=== PATIENT | female | born 1955 | race Caucasian/White ===

== ENCOUNTER 2016-04-18 14:47 | Day surgery (SDC) | payer BC ==
[2016-04-10 08:14] VITALS: BMI 21.2
[~2016-04-18 14:47] MED LIST: DEXAMETHASONE SOD PHOSPHATE 10 MG/ML 1 ML VIAL IV ONE; FAMOTIDINE 20 MG/2 ML VIAL IV PRN; HEPARIN SODIUM,PORCINE 5,000 UNIT/ML 1 ML VIAL SQ ONE; LIDOCAINE 1% 20 ML VIAL (10MG/ML) FOR IV START INTRADERMA PRN; MIDAZOLAM 2 MG/2 ML VIAL IV PRN; ONDANSETRON 4 MG/2 ML VIAL IVP ONE; SCOPOLAMINE 1.5MG/72HR PATCH TRANSDERM ONE; ceFAZolin 2 GM in SODIUM CHLORIDE 0.9% 100 ML IVPB ONE
[2016-04-18] MEDS: LACTATED RINGERS 1,000 ML IV SCH ×2 (15:22→15:23)
[2016-04-18] MEDS ORDERED: LIDOCAINE 1% 20 ML VIAL (10MG/ML) FOR IV START INTRADERMA ONE (15:23)
--- NOTE | 2016-04-18 17:47 | P.GSHP ---
History of Present Illness H&P Date: 04/18/16 Chief Complaint: Incarcerated incisional hernia This is a 60-year-old female has developed an incarcerated incisional hernia at a epigastric trocar site. She does today for laparoscopic robotic system repair of incisional hernia. - Constitutional Constitutional: Reports as per HPI Past Medical History Additional Past Medical History / Comment(s): HERNIA History of Any Multi-Drug Resistant Organisms: None Reported Past Surgical History: Appendectomy, Cholecystectomy, Hernia Repair, Tubal Ligation Additional Past Surgical History / Comment(s): BUNIONS-BILAT FEET Past Anesthesia/Blood Transfusion Reactions: No Reported Reaction Past Psychological History: No Psychological Hx Reported Smoking Status: Never smoker Past Alcohol Use History: None Reported Past Drug Use History: None Reported - Past Family History Father Family Medical History: Cancer Additional Family Medical History / Comment(s): COLON Medications and Allergies Home Medications Medication Instructions Recorded Confirmed Type No Known Home Medications [No 04/10/16 04/18/16 History Known Home Medications] Allergies Allergy/AdvReac Type Severity Reaction Status Date / Time No Known Allergies Allergy Verified 04/18/16 15:06 Surgical - Exam Vital Signs Temp Pulse Resp BP Pulse Ox 98.1 F 92 16 124/72 98 04/18/16 15:10 04/18/16 15:10 04/18/16 15:10 04/18/16 15:10 04/18/16 15:10 - General well developed, no distress - Eyes PERRL - ENT normal pinna - Neck no masses - Respiratory normal expansion - Cardiovascular Rhythm: regular - Abdomen Abdomen: soft, non tender Hernia: incisional (Cursory incisional hernia located in mid epigastric area approximately 3 cm in diameter) Assessment and Plan Plan: Incarcerated incisional hernia. We'll perform laparoscopic robotic system repair.
[2016-04-18] MEDS ORDERED: MIDAZOLAM 2 MG/2 ML VIAL ONE (17:50)
[2016-04-18] MEDS ORDERED: SODIUM CHLORIDE 0.9% 100 ML BAG ONE (17:50)
[2016-04-18] MEDS ORDERED: ceFAZolin 1,000 MG VIAL ONE (17:50)
[2016-04-18] MEDS ORDERED: NEOSTIGMINE 1 MG/ML 10 ML VIAL ONE (17:50)
[2016-04-18] MEDS ORDERED: KETOROLAC 30 MG/ML 1 ML VIAL ONE (17:50)
[2016-04-18] MEDS ORDERED: GLYCOPYRROLATE 0.2 MG/ML 2 ML VIAL ONE (17:50)
[2016-04-18] MEDS ORDERED: fentaNYL (PF) 50 MCG/ML 2 ML AMP ONE (17:50)
[2016-04-18] MEDS ORDERED: ROCURONIUM BROMIDE 10 MG/ML 10 ML VIAL IV ONE (17:50)
[2016-04-18] MEDS ORDERED: PROPOFOL 10 MG/ML 20 ML VIAL IV ONE (17:50)
[2016-04-18] MEDS ORDERED: BUPIVACAIN-EPI 0.25%-1:200,000 30 ML VIAL SQ ONE ×3 (18:15→18:55)
--- NOTE | 2016-04-18 18:59 | P.OP ---
Date of Procedure: 04/18/16 Preoperative Diagnosis: Incarcerated incisional hernia Postoperative Diagnosis: Incarcerated incisional hernia Procedure(s) Performed: Laparoscopic robotic-assisted repair of incarcerated incisional hernia Partial omentectomy Anesthesia: MARICHUY Surgeon: Andrei Johnson Estimated Blood Loss (ml): 5 Pathology: other (Omentum) Condition: stable Disposition: PACU Description of Procedure: The patient's placed on the operating table in the supine position. She received general anesthesia. Her abdomen was prepped and draped in sterile fashion. A 5 mm trochars placed in the left upper quadrant under direct visualization. In the lateral sides back. Cavity. Next a 8 mm trochars placed in the left lower quadrant and a 12 mm trocar was placed in the left lateral position. And then the original 5 mm trocar was exchanged for an 8 mm robotic trocar. The patient's placed in the left side up position and then the patient was docked to the robot. Using the hook cautery the incarcerated omentum was reduced from the hernia. The fascial defect was then seen. The fascial defect was then closed with oh the lock suture. Next a piece of ventral light ST mesh was placed and then the cavity and this was secured with a combination of 2 OV lock and was secured strap tacker. The patient was undocked from the robot. And the tacker was used to fix the mesh. This point the needles were withdrawn. The 12 mm trocar site was closed with 0 Ethibond suture. And then the skin was closed with 3-0 Monocryl suture. Dermabond was applied. Patient top procedure well and sent to recovery in stable condition.
[2016-04-18] MEDS: HYDROmorphone 1 MG/ML 1 ML SYRINGE IVP PRN ×4 (19:30→19:55)
[2016-04-18 19:32] VITALS: TEMP 99.6
[2016-04-18 20:03] VITALS: RESP 18
[2016-04-18] MEDS ORDERED: LACTATED RINGERS 1,000 ML IV ONE ×2 (20:30→20:32)
[2016-04-18] MEDS ORDERED: HYDROcodone/APAP 7.5-325MG 1 EACH TAB PO ONE (21:25)
[2016-04-18 21:42] VITALS: BP 112/71; PULSE 79
[2016-04-18] MEDS ORDERED: ONDANSETRON 4 MG/2 ML VIAL IVP ONE (21:59)
== END 2016-04-18 22:28 | disposition home or self-care (01) ==
LOC: OR 14:47
PROVIDERS: ATTEND Surgery
DX: K43.0 Incisional hernia with obstruction, without gangrene (principal)
CPT/HCPCS: 49655; 88305; J2250; J1644; J1100; J2710; J2405; J0690; J3010; J1885; J1170; J2704

== ENCOUNTER → 2016-07-05 | Outpatient (CLI) | payer BC ==
--- NOTE | 2016-07-05 13:43 | CT ---
EXAMINATION TYPE: CT abdomen pelvis w con DATE OF EXAM: 07/05/2016 1:24 PM COMPARISON: 06/05/2010 HISTORY: 61-year-old female with periumbilical/incisional pain status post double hernia repair with mesh implantation 3 months ago. TECHNIQUE: Contiguous axial scanning of the abdomen and pelvis following administration of 100 ml Omn ipaque 300 IV contrast. Delayed images through the kidneys and coronal/sagittal reconstructions perf ormed. CT DLP: 852 mGycm Automated exposure control for dose reduction was used. FINDINGS: The heart is normal size without pericardial effusion. Some stringy atelectasis at the posterior left lung base without pleural effusion. No focal liver lesion or biliary ductal dilatation. Portal venous system is patent Cholecystectomy clips. Adrenal glands, right kidney, spleen, and pancreas appear within normal limits. Enlarging left renal cyst now measuring 7.1 cm versus 4.7 cm on 06/05/2010. This now has prominent mas s effect with anterior displacement of the left kidney. No dilated small bowel, free fluid, or free air. Oral contrast has progressed to the rectum. No peric olonic inflammatory change. No mesenteric or retroperitoneal lymphadenopathy. The bladder is nondistended. Pelvic phleboliths are again demonstrated. The bilateral gonadal veins a re large in caliber with prominent periuterine varices on the left in particular but also on the righ t side. No abnormal fluid collection in the pelvis. Small ovaries are noted. No pelvic lymphadenopath y seen. No recurrent abdominal wall hernia identified. No abnormal cutaneous or subcutaneous lesion seen. Bones: There is a right L5 hemisacralization and associated degenerative changes in the lower lumbar spine. No osseous destructive process. Grade 1 anterolisthesis at L4-L5. IMPRESSION: 1. MESH REPAIR IN THE PERIUMBILICAL REGION. NO ABDOMINAL WALL HERNIA OR SIGNIFICANT INFLAMMATION SEEN ALONG THE ANTERIOR ABDOMINAL WALL. 2. THE LARGE 7.1 CM LEFT RENAL CYST SHOWS INTERVAL ENLARGEMENT FROM 2010 NOW WITH MASS EFFECT IN ANTE RIOR DISPLACEMENT ON THE LEFT KIDNEY. CORRELATE TO IF THIS COULD BE SYMPTOMATIC. 3. CORRELATE FOR BILATERAL PELVIC CONGESTION SYNDROME, WORSE ON THE LEFT.
== END | disposition home or self-care (01) ==
LOC: RADCTMAIN 12:47
PROVIDERS: ATTEND Surgery
DX: N28.1 Cyst of kidney, acquired (principal); R10.84 Generalized abdominal pain
CPT/HCPCS: 74177; Q9967

== ENCOUNTER 2016-08-10 08:52 | Day surgery (SDC) | payer BC ==
[2016-08-10 09:33] VITALS: TEMP 98.1
[2016-08-10 09:39] LABS: Mean Platelet Volume 7.3
[2016-08-10 09:50] LABS: Prothrombin Time 10.6 sec (9.0-12.0)
[2016-08-10 11:51] VITALS: BP 121/72; PULSE 77; RESP 16
--- NOTE | 2016-08-10 14:37 | CT ---
EXAMINATION TYPE: CT guided aspiration DATE OF EXAM: 08/10/2016 10:42 AM COMPARISON: NONE HISTORY: Lt renal cyst drainage CT DLP: 502mGycm PROCEDURE: The risks, applications, benefits and alternatives, were discussed with the patient and questions wer e answered. Informed consent was obtained. The patient was placed prone on the fluoroscopic table, p repped and draped in the usual sterile fashion. A 22-gauge system was utilized with direct passage of the needle into the requested renal cyst under CT guidance. An aspiration was performed. No residual cyst postaspiration.. The patient was stable throughout procedure and remained stable upon discharge from radiology. All e lements of maximal barrier and sterile technique were utilized. IMPRESSION: 1. Successful renal cyst aspiration under CT guidance.
== END 2016-08-10 11:45 | disposition home or self-care (01) ==
LOC: RADPROMAIN 08:52
PROVIDERS: ATTEND Urology
DX: N28.1 Cyst of kidney, acquired (principal)
CPT/HCPCS: 36415; 77012; 85049; 85610

== ENCOUNTER → 2017-03-28 | Outpatient (CLI) | payer BC ==
--- NOTE | 2017-04-01 09:50 | MM ---
Reason for exam: screening (asymptomatic). Last mammogram was performed 1 year and 9 months ago. History: Patient is postmenopausal and had first child at age 33. Physical Findings: A clinical breast exam by your physician is recommended on an annual basis and results should be correlated with mammographic findings. MG Screening Mammo w CAD Bilateral CC and MLO view(s) were taken. Prior study comparison: June 20, 2015, bilateral MG screening mammo w CAD. February 24, 2014, bilateral MG screening mammo w CAD. The breast tissue is heterogeneously dense. This may lower the sensitivity of mammography. No significant changes when compared with prior studies. ASSESSMENT: Benign, BI-RAD 2 RECOMMENDATION: Routine screening mammogram of both breasts in 1 year.
== END | disposition home or self-care (01) ==
LOC: RADMAMWWP 16:07
PROVIDERS: ATTEND Surgery
DX: Z12.31 Encounter for screening mammogram for malignant neoplasm of breast (principal)

== ENCOUNTER → 2017-04-26 | Outpatient (CLI) | payer BC ==
--- NOTE | 2017-04-26 08:36 | US ---
EXAMINATION TYPE: US venous doppler duplex LE DATE OF EXAM: 04/26/2017 7:56 AM COMPARISON: NONE CLINICAL HISTORY: R22.42SWELLING LLL,R22.41 SWELLING RLL. History of TIA, cramping bilateral lower le gs SIDE PERFORMED: Bilateral TECHNIQUE: The lower extremity deep venous system is examined utilizing real time linear array sonog mary with graded compression, doppler sonography and color-flow sonography. VESSELS IMAGED: External Iliac Vein (EIV) Common Femoral Vein Deep Femoral Vein Greater Saphenous Vein * Femoral Vein Popliteal Vein Small Saphenous Vein * Proximal Calf Veins (* superficial vessels) Grayscale, color doppler, spectral doppler imaging performed of the deep veins of the lower extremiti es. There is normal flow, compressibility, vascular waveforms. Right Leg: No evidence of DVT Left Leg: No evidence of DVT IMPRESSION: No sonographic evidence of deep venous thrombosis within either lower extremity.
== END ==
LOC: RADUSWWP 07:15
PROVIDERS: ATTEND Internal Medicine Hematology & Oncology
DX: R22.42 Localized swelling, mass and lump, left lower limb (principal); R22.41 Localized swelling, mass and lump, right lower limb
CPT/HCPCS: 93970

== ENCOUNTER → 2017-04-26 | Outpatient (CLI) | payer BC ==
--- NOTE | 2017-04-26 08:38 | US ---
EXAMINATION TYPE: US abdomen limited DATE OF EXAM: 04/26/2017 COMPARISON: NONE CLINICAL HISTORY: Z86.19 History of Hep C. Cholecystectomy, history of Hepatitis C EXAM MEASUREMENTS: Liver Length: 14.9 cm Gallbladder Wall: Surgically absent CBD: 0.2 cm Right Kidney: 9.9 x 3.7 x 4.6 cm Pancreas: visualized portions appear wnl Liver: Slightly coarsened hepatic echotexture with slightly diminished visualization of the portal tr iads. Although this finding slightly diminishes evaluation for hepatic masses and there is no focal s onographic mass on today's examination. Gallbladder: Surgically absent Evidence for sonographic Peña's sign: no CBD: wnl Right Kidney: no evidence of hydronephrosis or mass IMPRESSION: Mildly coarsened hepatic echotexture compatible with the patient's known history of underlying hepato cellular disease. No focal hepatic mass seen on today's examination.
== END | disposition home or self-care (01) ==
LOC: RADUSWWP 07:04
PROVIDERS: ATTEND Family Medicine
DX: Z09 Encounter for follow-up examination after completed treatment for conditions other than malignant neoplasm (principal); Z86.19 Personal history of other infectious and parasitic diseases
CPT/HCPCS: 76705

== ENCOUNTER → 2018-05-23 | Outpatient (CLI) | payer BC ==
--- NOTE | 2018-05-23 15:04 | US ---
EXAMINATION TYPE: US transvaginal DATE OF EXAM: 05/23/2018 COMPARISON: CT 2017 CLINICAL HISTORY: N93.8 Dysfunctional Uterine Bleeding. Bleeding x 4 days, 2, para 2, history of tubal ligation TECHNIQUE: Transvaginal exam only per ordering physician. Date of LMP: 10 years ago EXAM MEASUREMENTS: Uterus: 6.8 x 3.0 x 4.5 cm Endometrial Stripe: 0.1 cm Right Ovary: 2.7 x 1.9 x 1.6 cm Left Ovary: 2.1 x 1.2 x 1.1 cm 1. Uterus: anteverted 2. Endometrium: small amount of fluid seen within fundal portion of endo 3. Right Ovary: 2 simple appearing cystic areas with largest measuring 1.4 x 1.1 x 1.1cm 4. Left Ovary: Unremarkable 5. Bilateral Adnexa: wnl 6. Posterior cul-de-sac: wnl IMPRESSION: Trace amount of intramural endometrial fluid can be seen in endometrial atrophy with a th inned endometrial stripe measuring 1 mm, however direct visualization and sampling should remain a co nsideration in this patient with postmenopausal bleeding.
== END | disposition home or self-care (01) ==
LOC: RADUSWWP 14:12
PROVIDERS: ATTEND Family Medicine
DX: N93.8 Other specified abnormal uterine and vaginal bleeding (principal)
CPT/HCPCS: 76830

== ENCOUNTER → 2018-05-28 | Outpatient (CLI) | payer BC ==
--- NOTE | 2018-05-30 08:14 | MM ---
Reason for exam: screening (asymptomatic). Last mammogram was performed 1 year and 2 months ago. History: Patient is postmenopausal and had first child at age 33. Physical Findings: A clinical breast exam by your physician is recommended on an annual basis and results should be correlated with mammographic findings. MG Screening Mammo w CAD Bilateral CC and MLO view(s) were taken. Prior study comparison: March 28, 2017, bilateral MG screening mammo w CAD. June 20, 2015, bilateral MG screening mammo w CAD. The breast tissue is heterogeneously dense. This may lower the sensitivity of mammography. No significant changes when compared with prior studies. ASSESSMENT: Benign, BI-RAD 2 RECOMMENDATION: Routine screening mammogram of both breasts in 1 year.
== END ==
LOC: RADMAMWWP 14:29
PROVIDERS: ATTEND Family Medicine
DX: Z12.31 Encounter for screening mammogram for malignant neoplasm of breast (principal)
CPT/HCPCS: 77067

== ENCOUNTER → 2019-06-11 | Outpatient (CLI) | payer BC ==
--- NOTE | 2019-06-11 14:31 | MM ---
Reason for exam: screening (asymptomatic). Last mammogram was performed 1 year ago. History: Patient is postmenopausal and had first child at age 33. Physical Findings: A clinical breast exam by your physician is recommended on an annual basis and results should be correlated with mammographic findings. MG Screening Mammo w CAD Bilateral CC and MLO view(s) were taken. XCCL view(s) were taken of the right breast. Prior study comparison: May 28, 2018, bilateral MG screening mammo w CAD. March 28, 2017, bilateral MG screening mammo w CAD. The breast tissue is heterogeneously dense. This may lower the sensitivity of mammography. There is no discrete abnormality. No significant changes when compared with prior studies. ASSESSMENT: Negative, BI-RAD 1 RECOMMENDATION: Routine screening mammogram of both breasts in 1 year.
== END | disposition home or self-care (01) ==
LOC: RADMAMWWP 07:21
PROVIDERS: ATTEND Family Medicine
DX: Z12.39 Encounter for other screening for malignant neoplasm of breast (principal)
CPT/HCPCS: 77067

== ENCOUNTER → 2020-05-05 | Outpatient (CLI) | payer BC ==
[2020-05-05 10:55] LABS: Basophils % (A) 1 %; Eosinophils % (A) 1 %; HCT 43.6 % (34.0-46.0); HGB 14.3 gm/dL (11.4-16.0); Lymphocytes # (A) 1.1 k/uL (1.0-4.8); Lymphocytes % (A) 31 %; MCH 30.6 pg (25.0-35.0); MCHC 32.9 g/dL (31.0-37.0); Mean Platelet Volume 7.3; Monocytes # (A) 0.2 k/uL (0-1.0); Monocytes % (A) 5 %; Neutrophils # (A) 2.2 k/uL (1.3-7.7); Neutrophils % (A) 61 %; Platelet Count 152 k/uL (150-450); RBC 4.68 m/uL (3.80-5.40); WBC 3.7 k/uL (3.8-10.6)
[2020-05-05 11:11] LABS: ALT 68 U/L (4-34); AST 71 U/L (14-36); African American GFR (CKD) >90 (>60 ml/min/1.73 sqM); Albumin 4.8 g/dL (3.5-5.0); Alkaline Phosphatase 44 U/L (38-126); Anion Gap 9 mmol/L; Blood Urea Nitrogen 13 mg/dL (7-17); Calcium 9.9 mg/dL (8.4-10.2); Carbon Dioxide 26 mmol/L (22-30); Chloride 107 mmol/L (98-107); Cholesterol 127 mg/dL (<200); Creatine Kinase 973 U/L (30-135); Glucose 107 mg/dL (74-99); HDL Cholesterol 110 mg/dL (40-60); LDL Cholesterol,Calculated 12 mg/dL (0-99); Non-African American GFR(CKD) 86 (>60 ml/min/1.73 sqM); Potassium 4.1 mmol/L (3.5-5.1); Sodium 142 mmol/L (137-145); Total Bilirubin 0.6 mg/dL (0.2-1.3); Total Protein 7.9 g/dL (6.3-8.2); Triglycerides 26 mg/dL (<150)
[2020-05-05 17:21] LABS: Hemoglobin A1C 5.2 % (4.0-6.0)
--- NOTE | 2020-05-06 09:35 | ECHOS ---
STRESS ECHOCARDIOGRAM LUMASON: Vial INDICATIONS: Chest pain. MEDICATIONS: BASELINE HEART RATE: 113 BASELINE BLOOD PRESSURE: 151/80 MAXIMUM HEART RATE: 159 MAXIMUM BLOOD PRESSURE: 188/84 85% MPHR: 134 100% MPHR: 158 METS: 7.9 MAXIMUM STAGE REACHED: 2 TOTAL EXERCISE TIME: 6 minutes 32 seconds CLINICAL INFORMATION: Baseline rhythm is sinus mechanism, rate of 113, normal axis and intervals, nonspecific ST-T wave changes. Baseline blood pressure 151/80 mmHg. Patient exercised on Joe protocol for 6 minutes 32 seconds reaching peak rate 159 beats per minute which is equal to 100% maximum predicted heart rate. Peak blood pressure 188/84 mmHg. Test was terminated secondary to fatigue. There was no chest pain. Electrocardiograph monitoring revealed no evidence of diagnostic ischemic ST deviation. Baseline echocardiogram revealed normal wall motion. At peak exercise, there was normal wall motion augmentation with no hypokinesis or dyskinesis. CONCLUSION: 1. Average exercise tolerance with rare PVCs and nondiagnostic electrocardiograph stress testing secondary to baseline EKG abnormality. 2. Normal stress echocardiogram with no evidence of stress-induced ischemia. MMODL / IJN: [id number] /
== END | disposition home or self-care (01) ==
LOC: RADNMMAIN 09:10
PROVIDERS: ATTEND Family Medicine
DX: I49.3 Ventricular premature depolarization (principal); R94.31 Abnormal electrocardiogram [ECG] [EKG]; E78.5 Hyperlipidemia, unspecified
CPT/HCPCS: 80053; 80061; 82550; 83036; 85025; 93351

== ENCOUNTER 2020-06-17 09:01 | Day surgery (SDC) | payer BC ==
[2020-06-13 16:00] VITALS: BMI 22.1
[~2020-06-17 09:01] MED LIST changes: -DEXAMETHASONE SOD PHOSPHATE 10 MG/ML 1 ML VIAL IV ONE; -FAMOTIDINE 20 MG/2 ML VIAL IV PRN; -HEPARIN SODIUM,PORCINE 5,000 UNIT/ML 1 ML VIAL SQ ONE; +LACTATED RINGERS 1,000 ML IV SCH; -LIDOCAINE 1% 20 ML VIAL (10MG/ML) FOR IV START INTRADERMA PRN; -MIDAZOLAM 2 MG/2 ML VIAL IV PRN; -ONDANSETRON 4 MG/2 ML VIAL IVP ONE; -SCOPOLAMINE 1.5MG/72HR PATCH TRANSDERM ONE; -ceFAZolin 2 GM in SODIUM CHLORIDE 0.9% 100 ML IVPB ONE
[2020-06-17 09:32] VITALS: RESP 16; TEMP 98.4
[2020-06-17] MEDS ORDERED: LIDOCAINE 1% (10MG/ML) FOR IV START INTRADERMA ONE (09:35)
[2020-06-17] MEDS ORDERED: PROPOFOL 10 MG/ML 20 ML VIAL IV ONE (10:47)
--- NOTE | 2020-06-17 10:50 | P.GSHP ---
History of Present Illness H&P Date: 06/17/20 Chief Complaint: Screening colonoscopy Is a 62-year-old female been safe for screening colonoscopy. Patient denies a significant GI complaints. Past Medical History Past Medical History: CVA/TIA, Hyperlipidemia, Hypertension, Renal Disease Additional Past Medical History / Comment(s): left renal cyst, TIA History of Any Multi-Drug Resistant Organisms: None Reported Past Surgical History: Appendectomy, Cholecystectomy, Hernia Repair, Orthopedic Surgery, Tubal Ligation Additional Past Surgical History / Comment(s): BUNIONS-BILAT FEET, neck surgery for infection, colonoscopy Past Anesthesia/Blood Transfusion Reactions: No Reported Reaction Smoking Status: Never smoker - Past Family History Father Family Medical History: Cancer Additional Family Medical History / Comment(s): COLON Mother Family Medical History: No Reported History Medications and Allergies Home Medications Medication Instructions Recorded Confirmed Type Aspirin 162 mg PO DAILY #30 chewable 03/21/17 06/13/20 Rx Ubidecarenone [Co Q-10] 300 mg PO DAILY #90 capsule 03/21/17 06/13/20 Rx Metoprolol Tartrate 25 mg PO HS 06/13/20 06/13/20 History Rosuvastatin [Crestor] 10 mg PO HS 06/13/20 06/13/20 History Allergies Allergy/AdvReac Type Severity Reaction Status Date / Time No Known Allergies Allergy Verified 06/17/20 09:23 Surgical - Exam Vital Signs Temp Pulse Resp BP Pulse Ox 98.4 F 95 16 134/74 97 06/17/20 09:31 06/17/20 09:31 06/17/20 09:31 06/17/20 09:31 06/17/20 09:31 - General well developed, well nourished, no distress - Eyes PERRL - ENT normal pinna - Neck no masses - Respiratory normal expansion - Cardiovascular Rhythm: regular - Abdomen Abdomen: soft, non tender Assessment and Plan Assessment: We'll perform screening colonoscopy.
--- NOTE | 2020-06-17 11:04 | P.OP ---
Date of Procedure: 06/17/20 Preoperative Diagnosis: Screening colonoscopy Postoperative Diagnosis: Normal colonoscopy Procedure(s) Performed: Colonoscopy Anesthesia: MAC Surgeon: Andrei Johnson Pathology: none sent Condition: stable Disposition: PACU Description of Procedure: The patient's placed on the endoscopy table in the lateral position. She received IV sedation. Digital rectal exam was performed which revealed no abnormalities. Flexible colonoscope was then placed patient anus passed throughout the entire colon. The ileocecal valve visualized. The cecum, ascending transverse colon appeared normal. The descending and sigmoid colon appeared normal. Scope was then brought back into the rectum, this was normal. Scope was withdrawn for patient.
[2020-06-17 11:40] VITALS: BP 126/76; PULSE 89
== END 2020-06-17 11:58 | disposition home or self-care (01) ==
LOC: ORWHC2ENDO 09:01
PROVIDERS: ATTEND Surgery
DX: Z12.11 Encounter for screening for malignant neoplasm of colon (principal); I10 Essential (primary) hypertension; E78.5 Hyperlipidemia, unspecified; N28.9 Disorder of kidney and ureter, unspecified; Z80.0 Family history of malignant neoplasm of digestive organs; Z86.73 Personal history of transient ischemic attack (TIA), and cerebral infarction without residual deficits; Q61.01 Congenital single renal cyst; Z90.49 Acquired absence of other specified parts of digestive tract; Z98.51 Tubal ligation status; Z98.890 Other specified postprocedural states; Z90.89 Acquired absence of other organs; Z79.82 Long term (current) use of aspirin; Z79.899 Other long term (current) drug therapy
CPT/HCPCS: G0105; J2704

== ENCOUNTER → 2020-12-05 | Outpatient (CLI) | payer BC ==
--- NOTE | 2020-12-05 08:07 | US ---
EXAMINATION TYPE: US abdomen complete DATE OF EXAM: 12/05/2020 COMPARISON: US 04/26/2017, CT 07/05/2016 CLINICAL HISTORY: Z86.19 History of Hep C. Patient states she had left renal cyst drained EXAM MEASUREMENTS: Liver Length: 13.6 cm Gallbladder Wall: Surgically absent CBD: 0.5 cm Spleen: 8.2 cm Right Kidney: 10.5 x 3.3 x 4.4 cm Left Kidney: 9.5 x 4.2 x 4.2 cm Pancreas: Tail obscured by overlying bowel gas, visualized portions wnl Liver: wnl Gallbladder: Surgically absent Evidence for sonographic Peña's sign: No CBD: wnl Spleen: wnl Right Kidney: No hydronephrosis or masses seen Left Kidney: No hydronephrosis. Cyst measuring 8.3 x 6.8 x 7.7 cm Upper IVC: wnl Abd Aorta: wnl The liver is homogenous. The intrahepatic portion of the IVC and proximal abdominal aorta are within normal limits. There is no evidence of cholelithiasis. Common bile duct is unremarkable. The visu alized portions of the pancreas are homogenous. The spleen is unremarkable. Kidneys are symmetric a nd free of hydronephrosis. IMPRESSION: large cyst left kidney. Otherwise unremarkable study.
--- NOTE | 2020-12-06 10:19 | MM ---
Reason for exam: screening (asymptomatic). Last mammogram was performed 1 year and 6 months ago. History: Patient is postmenopausal and had first child at age 33. Physical Findings: A clinical breast exam by your physician is recommended on an annual basis and results should be correlated with mammographic findings. MG Screening Mammo w CAD Bilateral CC and MLO view(s) were taken. Prior study comparison: June 11, 2019, bilateral MG screening mammo w CAD. May 28, 2018, bilateral MG screening mammo w CAD. The breast tissue is heterogeneously dense. This may lower the sensitivity of mammography. Stable benign calcifications in the right breast. There is no discrete abnormality. No significant changes when compared with prior studies. ASSESSMENT: Benign, BI-RAD 2 RECOMMENDATION: Routine screening mammogram of both breasts in 1 year.
== END | disposition home or self-care (01) ==
LOC: RADMAMWWP 07:12
PROVIDERS: ATTEND Family Medicine
DX: Z12.31 Encounter for screening mammogram for malignant neoplasm of breast (principal); N28.1 Cyst of kidney, acquired; Z86.19 Personal history of other infectious and parasitic diseases
CPT/HCPCS: 76700; 77067

== ENCOUNTER → 2022-03-06 | Outpatient (CLI) | payer BC ==
--- NOTE | 2022-03-07 07:40 | MM ---
Reason for Exam: Screening (asymptomatic). Last mammogram was performed 1 year(s) and 3 month(s) ago. Patient History: Menarche at age 18. First Full-Term at age 33. Late child-bearing (after 30). Postmenopausal. Patient has history of breast feeding. Risk Values: Lata 5 year model risk: 2.0%. NCI Lifetime model risk: 8.1%. Prior Study Comparison: 02/02/2009 Left Diagnostic Mammogram, [facility]. 03/08/2010 Bilateral Screening Mammogram, [facility]. 03/20/2011 Bilateral Screening Mammogram, [facility]. 02/24/2014 Bilateral Screening Mammogram, [facility]. 06/20/2015 Bilateral Screening Mammogram, [facility]. 03/28/2017 Bilateral Screening Mammogram, [facility]. 05/28/2018 Bilateral Screening Mammogram, [facility]. 06/11/2019 Bilateral Screening Mammogram, [facility]. 12/05/2020 Bilateral Screening Mammogram, [facility]. Tissue Density: The breast tissue is heterogeneously dense. This may lower the sensitivity of mammography. Findings: Analyzed By CAD. There is no suspicious group of microcalcifications or new suspicious mass in either breast. Overall Assessment: Negative, BI-RAD 1 Management: Screening Mammogram of both breasts in 1 year. A clinical breast exam by your physician is recommended on an annual basis and results should be correlated with mammographic findings. Electronically signed and approved by: Marcelino Merino M.D. Radiologis
== END | disposition home or self-care (01) ==
LOC: RADMAMWWP 08:21
PROVIDERS: ATTEND Family Medicine
DX: Z12.31 Encounter for screening mammogram for malignant neoplasm of breast (principal); Z78.0 Asymptomatic menopausal state
CPT/HCPCS: 77067

== ENCOUNTER 2022-04-23 15:50 | Observation (INO) | payer BC ==
[2022-04-23] MEDS ORDERED: NITROGLYCERIN OINT 1 INCH/GM PACKET TOPICAL STA (16:27)
[2022-04-23] MEDS ORDERED: ASPIRIN 81 MG PO STA (16:27)
--- NOTE | 2022-04-23 16:29 | ED ---
General Adult HPI - General Chief complaint: Chest Pain Stated complaint: Chest pain Time Seen by Provider: 04/23/22 16:00 Source: patient, RN notes reviewed, old records reviewed Mode of arrival: ambulatory Limitations: no limitations - History of Present Illness Initial comments: Is a 66-year-old female presents emergency Department complaining that she has left-sided chest pressure. Patient states it lasts typically for an hour to a minute subsides. Patient states she has had in the past occasionally but doesn't last long but now this chest pain is been intermittent for the last 2 days about every 2 hours. Patient states yesterday she was also very short of breath with it as well. Patient denies any diaphoretic episodes. Patient denies lightheadedness or dizziness. Patient denies any nausea. Patient denies any abdominal pain. Patient denies any nausea vomiting or diarrhea. Patient denies any swelling to her legs or calf tenderness. Patient states she's not a smoker and has never been diagnosed with diabetes, hypertension, or high cholesterol. Patient denies any family history of heart disease. - Related Data Previous Rx's Medication Instructions Recorded Aspirin 81 mg PO DAILY tab 04/24/22 Metoprolol Tartrate [Lopressor] 25 mg PO TID #90 tab 04/24/22 Pantoprazole [Protonix] 40 mg PO DAILY #30 tab 04/24/22 Allergies Allergy/AdvReac Type Severity Reaction Status Date / Time No Known Allergies Allergy Verified 04/23/22 20:16 Review of Systems ROS Statement: Those systems with pertinent positive or pertinent negative responses have been documented in the HPI. ROS Other: All systems not noted in ROS Statement are negative. Past Medical History Past Medical History: CVA/TIA, Hyperlipidemia, Hypertension, Renal Disease Additional Past Medical History / Comment(s): left renal cyst, TIA History of Any Multi-Drug Resistant Organisms: None Reported Past Surgical History: Appendectomy, Cholecystectomy, Hernia Repair, Orthopedic Surgery, Tubal Ligation Additional Past Surgical History / Comment(s): BUNIONS-BILAT FEET, neck surgery for infection, colonoscopy Past Anesthesia/Blood Transfusion Reactions: No Reported Reaction Past Psychological History: No Psychological Hx Reported Smoking Status: Never smoker - Past Family History Father Family Medical History: Cancer Additional Family Medical History / Comment(s): COLON Mother Family Medical History: No Reported History General Exam - General Exam Comments Initial Comments: GENERAL: Patient is well-developed and well-nourished. Patient is nontoxic and well- hydrated and is in mild distress. ENT: Neck is soft and supple. No significant lymphadenopathy is noted. Oropharynx is clear. Moist mucous membranes. Neck has full range of motion without eliciting any pain. EYES: The sclera were anicteric and conjunctiva were pink and moist. Extraocular movements were intact and pupils were equal round and reactive to light. Eyelids were unremarkable. PULMONARY: Unlabored respirations. Good breath sounds bilaterally. No audible rales rhonchi or wheezing was noted. CARDIOVASCULAR: There is a regular rate and rhythm without any murmurs gallops or rubs. ABDOMEN: Soft and nontender with normal bowel sounds. SKIN: Skin is clear with no lesions or rashes and otherwise unremarkable. NEUROLOGIC: Patient is alert and oriented x3. Cranial nerves II through XII are grossly intact. Motor and sensory are also intact. Normal speech, volume and content. Symmetrical smile. MUSCULOSKELETAL: Normal extremities with adequate strength and full range of motion. No lower extremity swelling or edema. No calf tenderness. LYMPHATICS: No significant lymphadenopathy is noted PSYCHIATRIC: Normal psychiatric evaluation. Limitations: no limitations Course Vital Signs 04/23/22 04/23/22 04/23/22 15:55 17:18 18:13 Temperature 97 F L Pulse Rate 123 H 94 106 H Respiratory 20 18 18 Rate Blood Pressure 171/102 136/85 123/83 O2 Sat by Pulse 98 96 96 Oximetry 04/24/22 04/24/22 04/24/22 00:00 04:00 07:19 Temperature Pulse Rate 77 81 Respiratory 16 16 Rate Blood Pressure 107/60 133/68 O2 Sat by Pulse 97 99 99 Oximetry 04/24/22 04/24/22 07:41 12:24 Temperature 97.7 F Pulse Rate 74 71 Respiratory 18 18 Rate Blood Pressure 130/72 119/82 O2 Sat by Pulse 99 96 Oximetry Medical Decision Making - Medical Decision Making EKG is interpreted by myself. EKG shows sinus tachycardia at 110 bpm WA interval 140 QRS is 85 Q-T intervals 340 QTC is 45 per patient's EKG shows no ST segment elevation however there is slight ST segment depression in leads V3 through V6 as well as in the inferior leads. - Lab Data Result diagrams: 04/23/22 16:33 04/23/22 16:33 Lab Results 04/23/22 04/23/22 04/23/22 Range/Units 16:33 16:33 16:33 WBC 3.6 L (3.8-10.6) k/uL RBC 4.52 (3.80-5.40) m/uL Hgb 14.6 (11.4-16.0) gm/dL Hct 41.6 (34.0-46.0) % MCV 91.9 (80.0-100.0) fL MCH 32.3 (25.0-35.0) pg MCHC 35.1 (31.0-37.0) g/dL RDW 12.9 (11.5-15.5) % Plt Count 133 L (150-450) k/uL MPV 7.6 Neutrophils % 60 % Lymphocytes % 30 % Monocytes % 7 % Eosinophils % 1 % Basophils % 0 % Neutrophils # 2.2 (1.3-7.7) k/uL Lymphocytes # 1.1 (1.0-4.8) k/uL Monocytes # 0.2 (0-1.0) k/uL Eosinophils # 0.0 (0-0.7) k/uL Basophils # 0.0 (0-0.2) k/uL PT 9.9 (9.0-12.0) sec INR 0.9 (<1.2) APTT 22.6 (22.0-30.0) sec Sodium 142 (137-145) mmol/L Potassium 3.7 (3.5-5.1) mmol/L Chloride 108 H (98-107) mmol/L Carbon Dioxide 24 (22-30) mmol/L Anion Gap 10 mmol/L BUN 15 (7-17) mg/dL Creatinine 0.75 (0.52-1.04) mg/dL Est GFR (CKD-EPI)AfAm >90 (>60 ml/min/1.73 sqM) Est GFR (CKD-EPI)NonAf 85 (>60 ml/min/1.73 sqM) Glucose 112 H (74-99) mg/dL Calcium 9.5 (8.4-10.2) mg/dL Magnesium 2.0 (1.6-2.3) mg/dL Total Bilirubin 0.5 (0.2-1.3) mg/dL AST 58 H (14-36) U/L ALT 70 H (4-34) U/L Alkaline Phosphatase 53 (38-126) U/L Troponin I (0.000-0.034) ng/mL Total Protein 7.8 (6.3-8.2) g/dL Albumin 4.8 (3.5-5.0) g/dL 04/23/22 Range/Units 16:33 WBC (3.8-10.6) k/uL RBC (3.80-5.40) m/uL Hgb (11.4-16.0) gm/dL Hct (34.0-46.0) % MCV (80.0-100.0) fL MCH (25.0-35.0) pg MCHC (31.0-37.0) g/dL RDW (11.5-15.5) % Plt Count (150-450) k/uL MPV Neutrophils % % Lymphocytes % % Monocytes % % Eosinophils % % Basophils % % Neutrophils # (1.3-7.7) k/uL Lymphocytes # (1.0-4.8) k/uL Monocytes # (0-1.0) k/uL Eosinophils # (0-0.7) k/uL Basophils # (0-0.2) k/uL PT (9.0-12.0) sec INR (<1.2) APTT (22.0-30.0) sec Sodium (137-145) mmol/L Potassium (3.5-5.1) mmol/L Chloride (98-107) mmol/L Carbon Dioxide (22-30) mmol/L Anion Gap mmol/L BUN (7-17) mg/dL Creatinine (0.52-1.04) mg/dL Est GFR (CKD-EPI)AfAm (>60 ml/min/1.73 sqM) Est GFR (CKD-EPI)NonAf (>60 ml/min/1.73 sqM) Glucose (74-99) mg/dL Calcium (8.4-10.2) mg/dL Magnesium (1.6-2.3) mg/dL Total Bilirubin (0.2-1.3) mg/dL AST (14-36) U/L ALT (4-34) U/L Alkaline Phosphatase (38-126) U/L Troponin I <0.012 (0.000-0.034) ng/mL Total Protein (6.3-8.2) g/dL Albumin (3.5-5.0) g/dL Disposition Clinical Impression: Chest pain Disposition: ADMITTED IP TO THIS [facility] Time of Disposition: 19:30
[2022-04-23] MEDS ORDERED: LORazepam 2 MG/ML INJ IV STA (16:30)
[2022-04-23 16:50] LABS: Basophils % (A) 0 %; Eosinophils % (A) 1 %; HCT 41.6 % (34.0-46.0); HGB 14.6 gm/dL (11.4-16.0); Lymphocytes # (A) 1.1 k/uL (1.0-4.8); Lymphocytes % (A) 30 %; MCH 32.3 pg (25.0-35.0); MCHC 35.1 g/dL (31.0-37.0); MCV 91.9 fL (80.0-100.0); Mean Platelet Volume 7.6; Monocytes # (A) 0.2 k/uL (0-1.0); Monocytes % (A) 7 %; Neutrophils # (A) 2.2 k/uL (1.3-7.7); Neutrophils % (A) 60 %; Platelet Count 133 k/uL (150-450); RBC 4.52 m/uL (3.80-5.40); RDW 12.9 % (11.5-15.5); WBC 3.6 k/uL (3.8-10.6)
--- NOTE | 2022-04-23 17:01 | XR ---
EXAMINATION TYPE: XR chest 2V DATE OF EXAM: 04/23/2022 COMPARISON: NONE HISTORY: Chest pain TECHNIQUE: 2 views FINDINGS: Heart and mediastinum are normal. Lungs are clear. Diaphragm is normal. Bony thorax is inta ct. IMPRESSION: Normal chest.
[2022-04-23 17:07] LABS: INR 0.9 (<1.2); Partial Thromboplastin Time 22.6 sec (22.0-30.0); Prothrombin Time 9.9 sec (9.0-12.0)
[2022-04-23 17:15] LABS: ALT 70 U/L (4-34); AST 58 U/L (14-36); African American GFR (CKD) >90 (>60 ml/min/1.73 sqM); Albumin 4.8 g/dL (3.5-5.0); Alkaline Phosphatase 53 U/L (38-126); Anion Gap 10 mmol/L; Blood Urea Nitrogen 15 mg/dL (7-17); Calcium 9.5 mg/dL (8.4-10.2); Carbon Dioxide 24 mmol/L (22-30); Chloride 108 mmol/L (98-107); Glucose 112 mg/dL (74-99); Non-African American GFR(CKD) 85 (>60 ml/min/1.73 sqM); Potassium 3.7 mmol/L (3.5-5.1); Sodium 142 mmol/L (137-145); Total Bilirubin 0.5 mg/dL (0.2-1.3); Total Protein 7.8 g/dL (6.3-8.2)
[2022-04-23] MEDS ORDERED: NITROGLYCERIN SL TABS 0.4 MG TAB SUBLINGUAL PRN (19:48)
[2022-04-24] MEDS: NITROGLYCERIN OINT 1 INCH/GM PACKET TOPICAL SCH ×2 (00:36→06:13)
--- NOTE | 2022-04-24 02:44 | P.HPIM ---
History of Present Illness H&P Date: 04/23/22 Chief Complaint: left sided chest pain 66 year old female with hypertension patient has history of TIA , patent foramen ovale she recently had COIVD on Mar 14 , since then she has persistent non productive cough. and runny nose . she also reports having early satiety , with mccarthy stomach and food regurgitation over the past couple months , but denies any weight loss, or vomiting, she is here today based on recommendations of her PCP , that she went for evaluation regarding left sided chest / shoulder pain that she experienced all of a sudden while home, not related to activity. pain has been recurrent over past 3 days. rated as 8/10 in severity felt like heaviness. no associated nausea, vomiting, profuse sweating, or palpitations. but she does experience heavy breathing. she also reports some left hand tingling , but no other weakness, or focal neuro deficits. EKG did show some ST depression. Trops negative X2 blood work also showed low platelets, of 133, denies any bleeding . and slightly elevated AST/ALT. she dneise any tobacco smoking, illicit drugs or heavy alcohol patient had LISA inthe past when she had an episode of TIA, and showed patent foramen ovale with right to left shunt. Review of Systems Pertinent positives as noted in HPI. All other systems were reviewed and are negative Past Medical History Past Medical History: CVA/TIA, Hyperlipidemia, Hypertension, Renal Disease Additional Past Medical History / Comment(s): left renal cyst, TIA History of Any Multi-Drug Resistant Organisms: None Reported Past Surgical History: Appendectomy, Cholecystectomy, Hernia Repair, Orthopedic Surgery, Tubal Ligation Additional Past Surgical History / Comment(s): BUNIONS-BILAT FEET, neck surgery for infection, colonoscopy Past Anesthesia/Blood Transfusion Reactions: No Reported Reaction Past Psychological History: No Psychological Hx Reported Smoking Status: Never smoker - Past Family History Father Family Medical History: Cancer Additional Family Medical History / Comment(s): COLON Mother Family Medical History: No Reported History Medications and Allergies Home Medications Medication Instructions Recorded Confirmed Type Metoprolol Succinate (ER) [Toprol 25 mg PO HS 04/23/22 04/23/22 History Xl] Allergies Allergy/AdvReac Type Severity Reaction Status Date / Time No Known Allergies Allergy Verified 04/23/22 20:16 Physical Exam Vitals: Vital Signs Temp Pulse Resp BP Pulse Ox 04/23/22 18:13 106 H 18 123/83 96 04/23/22 17:18 94 18 136/85 96 04/23/22 15:55 97 F L 123 H 20 171/102 98 Intake and Output 04/23/22 04/23/22 04/23/22 06:59 14:59 22:59 Other: Weight 56.699 kg Constitutional: No acute distress, conversant, pleasant Eyes: Anicteric sclerae, moist conjunctiva, Pupils equal round reactive to light ENMT: NC/AT Oropharynx clear, no erythema, or exudates Neck: Supple, no masses, or JVD No carotid bruits No thyromegaly Lungs: Clear to auscultation Clear to percussion Normal respiratory effort, no accessory muscle use Cardiovascular: Heart regular in rate and rhythm, No murmurs, gallops, or rubs No peripheral edema Abdominal: Soft Nontender, no guarding, rebound or rigidity Abdomen moving with respiration Normoactive bowel sounds No hepatomegaly, No splenomegaly No palpable mass No abdominal wall hernia noted Skin: Normal temperature, tone, texture, turgor No induration No subcutaneous nodules No rash, lesions No ulcers Extremities: No digital cyanosis No clubbing Pedal pulses intact and symmetrical Radial pulses intact and symmetrical No calf tenderness Psychiatric: Alert and oriented to person, place and time Appropriate affect fair judgement Neuro Muscles Strength 5/5 in all 4 extremities Sensation to light touch grossly present throughout Cranial nerves II-XII grossly intact Lymphatics: no palpable cervical or supraclavicular lymph nodes Results CBC & Chem 7: 04/23/22 16:33 04/23/22 16:33 Labs: Abnormal Lab Results - Last 24 Hours (Table) 04/23/22 04/23/22 Range/Units 16:33 16:33 WBC 3.6 L (3.8-10.6) k/uL Plt Count 133 L (150-450) k/uL Chloride 108 H (98-107) mmol/L Glucose 112 H (74-99) mg/dL AST 58 H (14-36) U/L ALT 70 H (4-34) U/L Assessment and Plan Assessment: case was discussed with ED doc, patient was sent in from PCP office with concerns regarding ACS , patient will be admitted under observation for cardiac workup with anticipated length of stay < 2 midnights left sided chest pain , recurrent cardiac tele monitor vital signs cardiology consult ASA EKG st depression trops negative X 2 d dimer pending CXR no acute pathology resume beta blockers check lipid panel nitro PRN for chest pain elevated ast/ALT history of hep C , s/p treatment continue to monitor thrombocytopenia no evidence of bleeding she reports its chronic in nature full code heparin sc tid for DVT PPX
[2022-04-24] MEDS ORDERED: SODIUM CHLORIDE 0.9% 1,000 ML IV SCH (02:45)
[2022-04-24 07:47] VITALS: RESP 18; TEMP 97.7
[2022-04-24] MEDS ORDERED: HEPARIN SODIUM,PORCINE/PF 5,000 UNIT/0.5 ML SYRINGE SQ SCH (08:00)
[2022-04-24] MEDS ORDERED: ASPIRIN 325 MG TAB PO SCH (09:00)
[2022-04-24] MEDS ORDERED: METOPROLOL TARTRATE 25 MG TAB PO SCH ×2 (09:15)
[2022-04-24 09:25] LABS: Chol/HDL Ratio 1.33 Ratio; LDL Cholesterol,Calculated 26.7 mg/dL (0.0-131.0); VLDL Calculation 7.28 mg/dL (5.00-40.00)
[2022-04-24] MEDS ORDERED: PANTOPRAZOLE 40 MG/10 ML VIAL IVP ONE (10:43)
[2022-04-24 13:27] VITALS: BP 119/82; PULSE 71
--- NOTE | 2022-04-24 14:30 | P.DS ---
Providers Date of admission: 04/23/22 19:48 Expected date of discharge: 04/24/22 Attending physician: Elizabeth Cai DO Consults: 04/23/22 19:48 Consult Physician Urgent Consulting Provider: [facility] Consult Reason/Comments: Chest pain Do you want consulting provider notified?: Yes Primary care physician: Matt Arellano [facility] Hospital Course: Discharge Diagnosis: Noncardiac chest pain Sinus tachycardia Acid reflux History of TIAs Hypertension, accelerated on arrival Dyslipidemia Hospital Course: Patient is a 66-year-old female with history of hypertension, TIA, patent foramen ovale, and recent cholecystitis infection in February 2022. She presented with complaints of chest pain, palpitations, and continued sinus symptoms. In the ER she underwent an extensive evaluation. On arrival she was tachycardic and hypertensive with a pulse of 123 and a blood pressure 171/102. Laboratory analysis showed mildly elevated AST and ALT. Initial troponin was negative. EKG was nonischemic. Chest x-ray was negative. She had a d-dimer which was negative. Arrangements were made for observation. She was seen by cardiology. The remainder of her troponins were negative. Cholesterol profile was within normal limits. Cardiology recommended changing her metoprolol XL to metoprolol 25 mg 3 times daily and continue outpatient follow-up. Due to her symptoms was felt she likely had acid reflux. She was also prescribed Protonix on discharge and asked to follow-up with her primary care physician. Follow-up: Dr. Ferris in 1 week, Dr. Arellano in 1-2 days, stop Toprol 25 mg XL once daily and began to metoprolol tartrate 25 mg 3 times daily, Protonix 40 mg daily Patient seen and examined at bedside. She continues to have some left-sided chest discomfort isn't resolved for some hours. She does complain of postnasal drip, chronic cough, feeling as though water is refluxing up into her abdomen, subxiphoid pain, and frequent cough. We discussed that she likely has a component of acid reflux. Vital signs reviewed and stable. General: nontoxic, no distress, appears at stated age Derm: warm, dry Head: atraumatic, normocephalic, symmetric Eyes: EOMI, no lid lag, anicteric sclera Mouth: no lip lesion, mucus membranes moist, + postnasal drip, + pharyngeal erythema Cardiovascular: S1S2 reg, Lungs: CTA bilateral, no rhonchi, no rales , no accessory muscle use Abdominal: soft, tender to palpation subxiphoid, no guarding, no appreciable organomegaly Ext: no gross muscle atrophy, no edema, no contractures Neuro: CN II-XI grossly intact, no focal neuro deficits Psych: Alert, oriented, appropriate affect A total of 25 minutes of time were spent preparing this complex discharge summa ry. Patient was discharged on 04/24/22. Plan - Discharge Summary Discharge Rx Participant: No New Discharge Prescriptions: New Aspirin 81 mg PO DAILY tab Metoprolol Tartrate [Lopressor] 25 mg PO TID #90 tab Pantoprazole [Protonix] 40 mg PO DAILY #30 tab Discontinued Metoprolol Succinate (ER) [Toprol Xl] 25 mg PO HS Discharge Medication List Aspirin 81 mg PO DAILY tab 04/24/22 [Rx] Metoprolol Tartrate [Lopressor] 25 mg PO TID #90 tab 04/24/22 [Rx] Pantoprazole [Protonix] 40 mg PO DAILY #30 tab 04/24/22 [Rx] Follow up Appointment(s)/Referral(s): Grant Ferris MD [STAFF PHYSICIAN] - 1 Week Matt Arellano MD [Primary Care Provider] - 1 Week Activity/Diet/Wound Care/Special Instructions: Activity: as tolerated Diet: GERD diet Special Instructions: Return if chest pain worsening Monitor Blood pressure and pulse once daily and make a log of these to bring to your appointment with Dr. Ferris Discharge Disposition: HOME SELF-CARE
--- NOTE | 2022-04-24 18:47 | CONS ---
CONSULTATION HISTORY OF PRESENT ILLNESS: This is a 66-year-old lady, who sees Dr. Barnes in the outpatient setting. She has a history of TIA in the past with a PFO, but PFO was not responsible for her TIA. She seems to have some small vessel disease. However, she is here with complaints of having some discomfort in the chest. Discomfort is actually in the left shoulder area. Pain is very atypical. It comes and goes, waxing and waning. Troponins are negative. She also complains of occasional shortness of breath. She currently takes metoprolol tartrate 25 mg daily and rosuvastatin 10 mg daily, and at the time of my evaluation, she is resting comfortably without any chest pain or shortness of breath. Her EKG revealed sinus mechanism, sinus tachycardia, nonspecific ST abnormality. Three sets of troponins are also unremarkable. She has been coughing, however. Her D-dimer is unremarkable. PAST MEDICAL HISTORY: Remarkable for TIA, hypertension, hyperlipidemia, some renal cysts, appendectomy, cholecystectomy, and hernia repair surgery. She had a transesophageal echo, which revealed a small PFO, which I do not believe is contributory to her TIA. According to the chart, she actually takes metoprolol succinate 25 mg, but not tartrate. She is slightly tachycardic. PHYSICAL EXAMINATION: VITAL SIGNS: Blood pressure is 130/70, pulse rate is about 100 per minute. HEENT: Unremarkable. Fundus was not examined by me. NECK: Supple. There is no JVD. I do not hear a carotid bruit. HEART: Reveals S1 and S2 heard normally. Slightly tachycardic. No significant murmurs. LUNGS: Clear. ABDOMEN: Soft and nontender. EXTREMITIES: Lower extremities reveal palpable pulses. No edema. CENTRAL NERVOUS SYSTEM: Normal. IMAGING STUDIES: EKG revealed sinus tachycardia, nonspecific ST abnormality. IMPRESSION: 1. Atypical chest pain. 2. Hypertension. 3. History of transient ischemic attack in the past. 4. History of patent foramen ovale, but not contributory to her transient ischemic attack. RECOMMENDATIONS: I am recommending that we will check a thyroid function test to rule out any hyperthyroidism. Increase her metoprolol and switch it from succinate to tartrate 25 mg t.i.d., 0.9 saline 75 mL/hour is she is receiving. She is on subcutaneous heparin. We will increase activity, and if she has no further symptoms and thyroid functions are normal, she can be discharged and follow up with Dr. Ferris, who sees her in the office, and we can do outpatient workup. I discussed my thoughts in detail with the patient. Thank you very much for the consult. RONY / FAITH: [id number] /
[2022-04-24] MEDS ORDERED: METOPROLOL SUCCINATE (ER) 25 MG TAB.ER.24H PO SCH (21:00)
[2022-04-25] MEDS ORDERED: ASPIRIN 81 MG PO SCH (09:00)
== END 2022-04-24 12:27 | disposition home or self-care (01) ==
LOC: EC 15:50 → INTOOBSV 19:48 → 6NMEDSUR 19:48
PROVIDERS: ADMIT Internal Medicine; ATTEND Internal Medicine
DX: R07.89 Other chest pain (principal); R00.0 Tachycardia, unspecified; K21.9 Gastro-esophageal reflux disease without esophagitis; R00.2 Palpitations; M25.512 Pain in left shoulder; I10 Essential (primary) hypertension; E78.5 Hyperlipidemia, unspecified; Q21.12 Patent foramen ovale; R74.01 Elevation of levels of liver transaminase levels; D69.6 Thrombocytopenia, unspecified; R20.2 Paresthesia of skin; R09.89 Other specified symptoms and signs involving the circulatory and respiratory systems; R05.3 Chronic cough; R09.82 Postnasal drip; N28.1 Cyst of kidney, acquired; Z20.822 Contact with and (suspected) exposure to COVID-19; Z79.82 Long term (current) use of aspirin; Z79.899 Other long term (current) drug therapy; Z86.73 Personal history of transient ischemic attack (TIA), and cerebral infarction without residual deficits; Z86.16 Personal history of COVID-19; Z90.49 Acquired absence of other specified parts of digestive tract; Z98.51 Tubal ligation status; Z98.890 Other specified postprocedural states; Z80.0 Family history of malignant neoplasm of digestive organs
CPT/HCPCS: 96361; 96372; 96374; 96375; 99285; 36415; 93005 ×2; 85379; 80061; 80053; 84443; 83735; 84484 ×2; 85025; 85610; 85730; 87635; 71046; G0378 ×2; J2060; C9113; J1644

== ENCOUNTER → 2022-07-26 | Outpatient (CLI) | payer BC ==
--- NOTE | 2022-07-26 14:37 | CT ---
EXAMINATION TYPE: CT abdomen pelvis w con DATE OF EXAM: 07/26/2022 COMPARISON: None HISTORY: Right-sided abdominal pain CONTRAST: CT scan of the abdomen and pelvis is performed with Oral Contrast and with IV Contrast, patient injec aiden with 300 mL of Isovue 300. FINDINGS: LUNG BASES-: No visible nodule. No infiltrate. LIVER/GB: There is evidence of hepatic steatosis. The gallbladder is surgically absent. No space occu pying hepatic lesion. Biliary tree is of normal caliber. PANCREAS: No inflammation. No distinct mass. SPLEEN: No splenic enlargement. No lesion seen. ADRENALS: No nodule. No thickening. KIDNEYS/BLADDER: No hydronephrosis. No nephrolithiasis. Redemonstrated is a large cyst upper pole l eft kidney measuring approximately 7 cm in greatest dimension. The left kidney is rotated upon its ve rtical axis. No additional renal lesions are noted at this time. Urinary bladder grossly unremarkable . BOWEL: The appendix is surgically absent. Normal bowel caliber. No inflammation. GENITAL ORGANS: No gross abnormality. LYMPH NODES: No greater than 1cm abdominal or pelvic lymph nodes are appreciated. AORTA: No significant abnormality. OSSEOUS STRUCTURES: No significant abnormality is seen. OTHER: No significant additional abnormality is seen. IMPRESSION: 1. No acute intra-abdominal process. Incidental findings as noted above.
== END | disposition home or self-care (01) ==
LOC: RADCTMAIN 11:57
PROVIDERS: ATTEND Family Medicine
DX: R10.31 Right lower quadrant pain (principal)
CPT/HCPCS: 82565; 84520; 74177; 36415; Q9967

== ENCOUNTER → 2023-04-02 | Outpatient (CLI) | payer MEDICARE ==
--- NOTE | 2023-04-03 17:04 | MM ---
Reason for Exam: Screening (asymptomatic). Last mammogram was performed 1 year(s) and 1 month(s) ago. Patient History: Menarche at age 18. First Full-Term at age 33. Late child-bearing (after 30). Postmenopausal. Patient has history of breast feeding. Risk Values: Lata 5 year model risk: 2.1%. NCI Lifetime model risk: 7.8%. Prior Study Comparison: 06/11/2019 Bilateral Screening Mammogram, [facility]. 12/05/2020 Bilateral Screening Mammogram, [facility]. 03/06/2022 Bilateral MG screening mammo w CAD, [facility]. Tissue Density: The breast tissue is heterogeneously dense. This may lower the sensitivity of mammography. Findings: Analyzed By CAD. Microclip right breast from prior biopsy. There is no suspicious group of microcalcifications or new suspicious mass in either breast. Overall Assessment: Negative, BI-RAD 1 Management: Screening Mammogram of both breasts in 1 year. . Patient should continue monthly self-breast exams. A clinical breast exam by your physician is recommended on an annual basis. This exam should not preclude additional follow-up of suspicious palpable abnormalities. Note on Lata scores and lifetime risk: 1. A Lata score greater than 3% is considered moderate risk. If this is the case, consider specialist referral to assess eligibility for a risk reducing agent. 2. If overall lifetime risk for the development of breast cancer is 20% or higher, the patient may qualify for future screening with alternating mammogram and breast MRI. Electronically signed and approved by: Radha Dolan M.D. Radiologist
== END | disposition home or self-care (01) ==
LOC: RADMAMWWP 09:51
PROVIDERS: ATTEND Family Medicine
DX: Z12.31 Encounter for screening mammogram for malignant neoplasm of breast (principal); Z78.0 Asymptomatic menopausal state
CPT/HCPCS: 77067

== ENCOUNTER → 2023-12-20 | Outpatient (CLI) | payer MEDICARE ==
--- NOTE | 2023-12-20 10:47 | MR ---
EXAMINATION TYPE: MR cervical spine wo con DATE OF EXAM: 12/20/2023 COMPARISON: None HISTORY: Neck pain TECHNIQUE: Multiplanar, multisequence images of the cervical spine were acquired without contrast. C2-C3: Mild degenerative disc foraminal stenosis. C3-C4: Mild degenerative disc disease and mild severity. Mild disc bulging with no focal herniation. Minimal uncovertebral joint or greater on the left mildly C4-C5: Small focal central disc herniation abutting the anterior margin of spinal cord. Uncovertebral joint contributes to mild bilateral foraminal. C5-C6: Severe degenerative disc disease with broad-based disc herniation or comparison to the right a butting the anterior margin of spinal cord. Mild central stenosis. Bilateral uncovertebral joint. Mod erate bilateral foraminal C6-C7: Severe degenerative disc disease with broad-based disc osteophyte complex with disc protrusion resulting in mild central stenosis. [id number] bilateral encroachment. C7-T1: No evidence for degenerative disc disease. No disc bulge/herniation or protrusion. No Canal stenosis. Foramina are patent bilaterally. Cervical segments are intact. There is normal alignment. Limited assessment signal and spinal cord. A small area of abnormal signal to C4 level which may be in the basis of compressive myelitis or myel omalacia. Craniovertebral junction relationships are within normal limits. Report was telephoned and faxed over to the patient's referring clinician 10:45 AM, 12/20/2023. Straightening of the cervical sp ine. IMPRESSION: 1. Small focal central disc herniation C4-C5 abuts the anterior margin of spinal cord. Could not excl ude a small focus of abnormal signal involving the anterior spinal cord which could be secondary to c ompressive myelitis or myelomalacia. 2. Severe degenerative disc disease C5-C6 and C6-C7 with broad-based disc herniation and mild central stenosis with bilateral foraminal encroachment.
== END | disposition home or self-care (01) ==
LOC: RADMRIMAIN 06:31
PROVIDERS: ATTEND Orthopaedic Surgery
DX: M48.02 Spinal stenosis, cervical region (principal); M47.22 Other spondylosis with radiculopathy, cervical region; M50.30 Other cervical disc degeneration, unspecified cervical region; M50.221 Other cervical disc displacement at C4-C5 level; M50.123 Cervical disc disorder at C6-C7 level with radiculopathy
CPT/HCPCS: 72141

== ENCOUNTER → 2024-09-04 | Outpatient (CLI) | payer MEDICARE ==
--- NOTE | 2024-09-04 08:19 | MM ---
Reason for Exam: Screening (asymptomatic). Last mammogram was performed 1 year(s) and 5 month(s) ago. Patient History: Menarche at age 18. First Full-Term at age 33. Late child-bearing (after 32). Postmenopausal. Patient has history of breast feeding. Risk Values: Lata 5 year model risk: 2.1%. NCI Lifetime model risk: 7.2%. Prior Study Comparison: 05/28/2018 Bilateral Screening Mammogram, [facility]. 06/11/2019 Bilateral Screening Mammogram, [facility]. 12/05/2020 Bilateral Screening Mammogram, [facility]. 03/06/2022 Bilateral MG screening mammo w CAD, [facility]. 04/02/2023 Bilateral MG screening mammo w CAD, [facility]. Tissue Density: The breasts are heterogeneously dense, which may obscure small masses. Findings: Analyzed By CAD. Right breast biopsy clip. Right breast: There is no suspicious group of microcalcifications or new suspicious mass. Benign-appearing calcifications right breast. Left breast: There is no suspicious group of microcalcifications or new suspicious mass. Benign-appearing calcifications left breast. Overall Assessment: Benign, BI-RAD 2 Management: Screening Mammogram of both breasts in [address] [facility] will attempt to contact patient to return for supplemental views and ultrasound if indicated. Patient should continue monthly self-breast exams. A clinical breast exam by your physician is recommended on an annual basis. This exam should not preclude additional follow-up of suspicious palpable abnormalities. Note on Lata scores and lifetime risk: 1. A Lata score greater than 3% is considered moderate risk. If this is the case, consider specialist referral to assess eligibility for a risk reducing agent. 2. If overall lifetime risk for the development of breast cancer is 20% or higher, the patient may qualify for future screening with alternating mammogram and breast MRI. [facility], , 09/04/2024 8:16 AM. Electronically signed and approved by: Faheem Barnes DO
== END | disposition home or self-care (01) ==
LOC: RADMAMWWP 07:25
PROVIDERS: ATTEND Family Medicine
DX: Z12.31 Encounter for screening mammogram for malignant neoplasm of breast (principal); R92.333 Mammographic heterogeneous density, bilateral breasts; R92.1 Mammographic calcification found on diagnostic imaging of breast; Z78.0 Asymptomatic menopausal state
CPT/HCPCS: 77063; 77067